=== PATIENT | male | born 2000 | race Two or more races ===

== ENCOUNTER 2019-04-10 18:01 | Emergency (ER) | payer MEDICAID, OTHER ==
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
--- NOTE | 2019-04-13 09:17 | CR ---
Nasal bone: Three views of the nasal bone were obtained. Comparison: No previous nasal bone exam. Visualized paranasal sinuses are clear. Minimal lucency is seen on one of the lateral views within the tip of the nasal bone possibly representing very minimal nasal bone tip fracture. No additional nasal bone abnormality is appreciated on this exam. Impression: 1. Possible minimal tip fracture within the nasal bone. 2. No additional abnormality is appreciated. Diagnostic code #2 This report was dictated in [place] Standard Time
== END 2019-04-10 19:01 | disposition home or self-care (01) ==
LOC: JD.ED 18:01
DX: S01.81XA Laceration without foreign body of other part of head, initial encounter (principal); S01.132A Puncture wound without foreign body of left eyelid and periocular area, initial encounter; V78.6XXA Passenger on bus injured in noncollision transport accident in traffic accident, initial encounter; W25.XXXA Contact with sharp glass, initial encounter; Y92.411 Interstate highway as the place of occurrence of the external cause
CPT/HCPCS: 70160; 70160-26; 99282; 99283-25